=== PATIENT | male | born 1990 | race Hispanic/Latino ===

== ENCOUNTER 2018-03-23 11:10 | Emergency (ER) | payer OTHER ==
[~2018-03-23] VITALS: Ht 165.1 cm; Wt 61.2 kg
--- NOTE | 2018-03-23 12:08 | ED GENERAL ADULT ---
History of Present Illness General Chief Complaint: General Adult Stated Complaint: "WANT TO GET A FEW TESTS DONE" Source: patient Exam Limitations: no limitations Vital Signs & Intake/Output Vital Signs & Intake/Output Vital Signs Date Time Temp Pulse Resp B/P B/P Pulse O2 O2 Flow FiO2 Mean Ox Delivery Rate 03/23 1123 98.6 70 20 117/68 97 Room Air Allergies Coded Allergies: No Known Allergies (03/23/18) Reconcile Medications No Known Home Medications Triage Note: TRIAGE: PT TO ER C/C PAIN TO JAW S/P DENTAL EXTRACTION Monday03/16/2018. HAD 2 WISDOM TEETH EXTRACTED AT THAT TIME. WAS ON AMOXICILLIN, COMPLETED YESTERDAY. HAS FOLLOW UP APPT NEXT WEEK. STATES SURGICAL AREA IS STILL INFLAMED. STATES THE MAIN REASON HE CAME IN WAS THAT HIS COWORKER NOTICED JAUNDICE AROUND HIS NECK LINE LAST NIGHT. Triage Nurses Notes Reviewed? yes HPI: 27 year old male with no significant past medical history. Patient presents to the ED with concerns for yellowing discoloration in the region of his anterior neck. Patient states he underwent wisdom teeth extraction last week. He just completed a course of amoxicillin. He is scheduled for follow-up with his dentist next week. Patient states last night he noticed yellow discoloration around the anterior portion of his neck. He states he went to work this morning and a coworker validated the discoloration and advised him to get this checked out. Patient denies any pain to this area or history of similar skin changes. Denies any recent illness. He denies any fever, chills, chest pain, shortness of breath, abdominal pain, nausea, vomiting, diarrhea, difficulty swallowing. Patient states he is tolerating solid food and is doing well from his wisdom teeth extraction. (Karely Donald MD) Past History Travel History Traveled to [place] past 21 day No Medical History Any Pertinent Medical History? none Neurological: NONE EENT: NONE Cardiovascular: NONE Respiratory: NONE Gastrointestinal: NONE Hepatic: NONE Renal: NONE Musculoskeletal: NONE Psychiatric: NONE Endocrine: NONE Blood Disorders: NONE Cancer(s): NONE PRECISION GRINDER EXTERNAL/Reproductive: NONE Surgical History Surgical History: none Psychosocial History What is your primary language Romanian Tobacco Use: Never used ETOH Use: occasional use Illicit Drug Use: denies illicit drug use Family History Hx Contributory? No (Karely Donald MD) Review of Systems Review of Systems Constitutional: Reports: no symptoms. EENTM: Reports: no symptoms. Respiratory: Reports: no symptoms. Cardiovascular: Reports: no symptoms. GI: Reports: no symptoms. Genitourinary: Reports: no symptoms. Musculoskeletal: Reports: no symptoms. Skin: Reports: change in skin color. Denies: dryness, erythema, lesions, lymphangitis , rash (anterior neck yellowing). (Karely Donald MD) Physical Exam Physical Exam General Appearance: well developed/nourished, no apparent distress, alert, awake , comfortable Head: atraumatic, normal appearance Eyes: Bilateral: normal appearance, PERRL. Ears, Nose, Throat: normal pharynx, normal ENT inspection, s/p wisdom teeth extraction; healing well; no erythema Neck: supple, full range of motion, see skin exam Respiratory: normal breath sounds, chest non-tender, no respiratory distress Cardiovascular: regular rate/rhythm, normal peripheral pulses Peripheral Pulses: 2+ radial (R), 2+ radial (L) Gastrointestinal: normal bowel sounds, soft, non-tender Extremities: normal inspection, normal capillary refill, normal range of motion, no edema Skin: intact, warm/dry, yellowish/slight green tint to anterior neck consistent with healing ecchymosis, non tender to palpation Core Measures ACS in differential dx? No CVA/TIA Diagnosis: No Sepsis Present: No Sepsis Focused Exam Completed? No (Karely Donald MD) Progress Differential Diagnoses I considered the following diagnoses in my evaluation of the patient: [ ecchymosis] Plan of Care: no work up needed. Patient without signs of infection. He has limited ecchymosis to anterior neck. Initial ED EKG: none Comments: 27 year old male with no PMH presenting s/p wisdom teeth extraction with ecchymosis to anterior neck that is asymptomatic. Unable to identify any insulting injury. May be associated with instrumentation or pressure applied to this area during wisdom teeth extraction. No work up needed in ED. No concerns for dysphagia or difficulty breathing. Patient is establishing care with a PCP in the region and will follow up as needed. Patient to keep his follow up appt with his Dentist next week. (Karely Donald MD) Departure Departure Time of Disposition: 1206 Disposition: HOME OR SELF CARE Condition: Stable Clinical Impression Primary Impression: Ecchymosis of neck Referrals: Patient Has No Primary Care Dr (PCP/Family) Additional Instructions: Follow up with your PCP. Keep your follow up appointment with your dentist. Return to ED for any worsening symptoms or concerns. Departure Forms: Customer Survey General Discharge Information Prescriptions: Current Visit Scripts No Known Home Medications (Karely Donald MD) PA/VEHICLE SALES PROFESSIONAL Co-Sign Statement Statement: ED Attending supervision documentation- x I saw and evaluated the patient. I have also reviewed all the pertinent lab results and diagnostic results. I agree with the findings and the plan of care as documented in the PA's/VEHICLE SALES PROFESSIONAL's documentation. [] I have reviewed the ED Record and agree with the PA's/VEHICLE SALES PROFESSIONAL's documentation. [] Additions or exceptions (if any) to the PAs/VEHICLE SALES PROFESSIONAL's note and plan are summarized below: [] (Landry WILLINGHAM,Ayad) Critical Care Note Critical Care Note Critical Care Time: non-applicable (Karely Donald MD)
== END 2018-03-23 12:12 ==
LOC: ERH 11:10
DX: R58 Hemorrhage, not elsewhere classified (principal); F10.10 Alcohol abuse, uncomplicated